=== PATIENT | female | born 1990 | race Caucasian/White ===

== ENCOUNTER 2017-04-13 20:26 | Inpatient (IN) | payer MEDICAID ==
[~2017-04-13] VITALS: Ht 170.2 cm; Wt 118.4 kg
[2017-04-13] MEDS: NACL 0.9% 1,000 ML IV SCH (01:40)
[~2017-04-13 20:26] MED LIST: MOTRIN600 MG PO
[2017-04-13 20:31] VITALS: BP 153/87
--- NOTE | 2017-04-13 21:52 | NUR ---
TO ER BED 4
--- NOTE | 2017-04-13 21:59 | NUR ---
26 Y/O FEMALE TO ER W/C/O VAGINAL BLEEDING X 12 DAYS, HEADACHE, NAUSEA AND VOMITING FOR 4 DAYS. PER PT LAST MENSTRIAL CYCLE WAS 7 MONTHS AGO. NO MED HX. CHRISTINA MARTIN MADE AWARE.
--- NOTE | 2017-04-13 22:04 | NUR ---
CHRISTINA MD EVALUATING PT AT THIS TIME.
[2017-04-13] MEDS ORDERED: KETOROLAC 30 MG/ML VIAL IVP ONE (22:15)
--- NOTE | 2017-04-13 23:23 | NUR ---
Pelvic exam performed by DR. OWENS with ME at bedside for entire examination. Patient tolerated procedure WELL. Patient assisted to position of comfort after examination.
--- NOTE | 2017-04-13 23:23 | NUR ---
Pelvic exam performed by DR. OWENS with ME at bedside for entire examination. Patient tolerated procedure WELL. Patient assisted to position of comfort after examination.
--- NOTE | 2017-04-13 23:31 | NUR ---
PT IN BED, VSS, NO OTHER S/S OF DISTRESS NOTED AT THE MOMENT.
[2017-04-13] MEDS ORDERED: DOCUSATE SODIUM 100 MG GELCAP PO PRN (23:45)
[2017-04-13] MEDS ORDERED: ACETAMINOPHEN 325 MG TAB PO PRN (23:45)
[2017-04-13] MEDS ORDERED: MORPHINE SULFATE 2 MG/ML SYR IVP PRN (23:45)
[2017-04-13] MEDS ORDERED: ONDANSETRON 4 MG/2 ML VIAL IM/IVP PRN (23:45)
[2017-04-14] VITALS (7 sets, daily range): BP systolic 100–123; BP diastolic 49–69
--- NOTE | 2017-04-14 00:09 | NUR ---
Patient will be admitted to care of DR HOWELL. Admited to TELEMETRY. Will go to room 105B. Belongings list completed. Report to BIN FRANKEL.
--- NOTE | 2017-04-14 00:16 | NUR ---
PT TRASFERRED TO FLOOR VIA GURBARBARA, ACCOMPANIED BY RN AND EMT.
--- NOTE | 2017-04-14 00:20 | NUR ---
PATIENT IS CURRENTLY AWAKE ALERT ORIENTED RESTING IN BED, DENIES PAIN UPON ADMISSION MINIMAL AMOUNT OF VAGINAL BLEEDING NOTED TO HER PERIPAD AT THIS TIME. SKIN ASSESSMENT DONE AND PATIENT SKIN IS CURRENTLY INTACT. PLAN OF CARE DISCUSSED WITH THE PATIENT. PATIENT IS AWARE THAT SHE HAS AN ORDER TO RECEIVE 2 UNITS OF BLOOD AND PATIENT AGREES TO SIGN THE CONSENT FOR BLOOD TRANSFUSION PATIENT VERBALIZES UNDERSTANDING.HELPER ANIMAL LABORATORY ANSELMO INFORMED THAT I NEED SCD'S FOR THE PATIENT.
--- NOTE | 2017-04-14 02:00 | NUR ---
I WAS NOTIFIED BY LAWRENCE CHIU HR UP TO 150 PATIENT ASSISTED TO THE BATHROOM PATIENT IS CURRENTLY ASYMPTOMATIC AND HAS NO COMPLAINS OF CHEST PAIN OR SOB AT THIS TIME.WILL CONTINUE TO MONITOR.
--- NOTE | 2017-04-14 02:29 | NUR ---
PATIENT IS RESTING IN BED PATIENT WANTS TO VOID AND I OFFERED THE BEDPAN BECAUSE SHE IS FEELING DIZZY AND SLIGHT SOB PATIENT REFUSED TO USE THE BEDPAN PATIENT HAS BEEN ALREADY PLACED ON FALL AND SAFETY PRECAUTIONS. PATIENT INSISTS TO WALK AND USE THE BATHROOM I INSTRUCTED THE PATIENT TO GET UP VERY SLOWLY TO SIT FOR FEW MINUTES THEN STAND AND IF SHE FEELS DIZZY SHE WILL SIT BACK DOWN AND WE MAY HAVE TO USE THE BEDPAN PATIENT AGREES. PATIENT INSISTS SHE IS FINE AND WANTS TO WALK SO SHE SAT AND THEN STOOD UP AND FEELS OK DENIES DIZZINESS SO I ASSISTED THE PATIENT TO THE BATHROOM AND I WAITED FOR THE PATIENT.CONTINUES TO HAVE MINIMAL BLEEDING TO PERIPAD.PATIENT WAS THEN ASSISTED BACK TO BED AND PLACED ON OXYGEN AT 2 LITERS VIA NC ORDERED BY MD GARCIA/
--- NOTE | 2017-04-14 02:38 | NUR ---
DORCAS FROM THE BLOOD BANK CALLED AND SAID THE BLOOD IS READY.
--- NOTE | 2017-04-14 03:03 | NUR ---
FIRST UNIT OF BLOOD CURRENTLY INFUSING I EXPLAINED TO THE PATIENT SOME OF THE SIDE EFFECTS TO REPORT AND I ALSO EXPLAINED TO THE PATIENT I WILL BE MONITORING HER AND CHECKING HER VITAL SIGNS PATIENT VERBALIZES UNDERSTANDING.WILL CONTINUE TO MONITOR PATIENT CURRENTLY TALKING ON THE PHONE WITH HER MOTHER.
--- NOTE | 2017-04-14 05:40 | NUR ---
PATIENT STABLE VITAL SIGNS STABLE FIRST UNIT OF BLOOD COMPLETE NO ADR NOTED DURING THE BLOOD TRANSFUSION PATIENT REMAINS STABLE.CALL LIGHT WITHIN REACH.
--- NOTE | 2017-04-14 06:27 | NUR ---
PATIENT STABLE CURRENTLY RECEIVING SECOND UNIT OF BLOOD TRANSFUSION PATIENT AWARE TO REPORT ANY SOB,ITCHING,AND RASH PATIENT MONITORED CLOSELY FOR ANY ADR VITALS SIGNS MONITORED.PATIENT DENIES PAIN AT THIS TIME.
--- NOTE | 2017-04-14 06:50 | NUR ---
Patient's Plan of Care was discussed and reviewed with BURRITO MAKER: JOSTIN STAPLES.
--- NOTE | 2017-04-14 06:55 | NUR ---
PATIENT IS CURRENTLY STABLE RESTING IN BED HAS OXYGEN AT 2L VIA NASAL CANNULA IN PLACE PATIENT DENIES PAIN.SECOND UNIT OF BLOOD ONGOING NO ADR NOTED.CALL LIGHT WITHIN REACH.
--- NOTE | 2017-04-14 07:34 | NUR ---
PATIENT STABLE REPORT ENDORSED TO RN BOLIVAR AT BEDSIDE PATIENT STABLE SECOND UNIT OF BLOOD ONGOING. ENDORSEDTO RN BOLIVAR THAT PATIENT LABS HAVEN'T BEEN DRAWN YET BECAUSE PATIENT IS GETTING BLOOD. INFORMED BIN LUTZ TO FOLLOW WITH THE LAB DEPARTMENT ONCE BLOOD TRANSFUSION IS COMPLETE.
--- NOTE | 2017-04-14 07:35 | NUR ---
RECEIVED ON BED AAOX4. NO SOB NOTED. NO C/O PAIN AT THIS TIME. IV TO RT AC PATENT AND INTACT WITH ON GOING BLOOD TRANSFUSION OF 2ND UNIT PRBC RUNNING AT 100 MLS/HR. WILL MONITOR FOR ANY BLOOD TRANSFUSION REACTIONS. CHEST CLEAR. ABDOMEN SOFT, BOWEL SOUNDS PRESENT. NO EDEMA NOTED. INSTRUCTED PT TO CALL FOR ASSISTANCE, CALL LIGHT WITHIN REACH, PT VERBALIZED UNDERSTANDING.
--- NOTE | 2017-04-14 08:45 | NUR ---
PATIENT HAS BEEN SCREENED AND CATEGORIZED HIGH NUTRITION RISK. PATIENT WILL BE SEEN WITHIN 1-2 DAYS OF ADMISSION. 04/14/17-04/15/[address]
--- NOTE | 2017-04-14 09:45 | NUR ---
2ND UNIT BLOOD TRANSFUSION COMPLETED. PT TOLERATED BT WELL. NO REACTIONS NOTED.
[2017-04-14] MEDS ORDERED: ACETAMINOPHEN EXTRA STRENGTH 500 MG TAB PO PRN (09:55)
--- NOTE | 2017-04-14 10:22 | NUR ---
SPOKE WITH MANUEL FROM LAB REGARDING PT'S BLOOD WORK FOR TODAY. MANUEL STATED SHE WILL DRAW PT AT 1200 NOON.
--- NOTE | 2017-04-14 11:01 | NUR ---
CM NOTE PER [facility] [phone], REVIEWS AND DISCHARGE NEEDS SHOULD ONLY BE SENT TO [facility] PER [facility] PH# [phone], THERE IS NO ASSIGNED METAL MINER YET INITIAL REVIEW FAXED TO [facility] [phone] Addendum: 04/14/17 at 1242 by Nataliya Puckett CM RECEIVED FAX FROM [facility] STATING THIS ADMSSION'S TRACKING# [id number] AND [facility] [place] PH [phone] [phone]
[2017-04-14] MEDS: LEVOFLOXACIN 250 MG/D5 PREMIX 50 ML IV SCH (11:35)
--- NOTE | 2017-04-14 13:10 | NUR ---
04/14/17 RD INITIAL ASSESSMENT COMPLETED PLEASE REFER TO NUTRITION ASSESSMENT UNDER CARE ACTIVITY FOR ESTIMATED NUTRITIONAL NEEDS. 1. CONTINUE REGULAR DIET 2. PROVIDE NUTRITION THERAPY EDUCATION NEEDED 3. RD TO FOLLOW-UP 7 DAYS, LOW RISK ARNAUD AGUILAR RD
[2017-04-14] MEDS ORDERED: FERRIC GLUCONATE 125 MG in NACL 0.9% 100 ML IV SCH (14:00)
[2017-04-14] MEDS: HYDROcodone/APAP 7.5/325 MG 1 TAB PO PRN ×2 (15:29→19:29)
--- NOTE | 2017-04-14 16:00 | NUR ---
PT AWAKE, TALKING TO HER MOM AT THE BEDSIDE. NO COMPLAINTS MADE.
--- NOTE | 2017-04-14 18:00 | NUR ---
PT HAD A TOTAL OF 6 PERINEAL PADS USED SINCE 7AM TO THIS HOUR, MODERATE VAGINAL BLEEDING NOTED.
--- NOTE | 2017-04-14 18:57 | NUR ---
PT RESTING. NO SOB NOTED. NO COMPLAINTS MADE. LAB CALLED FOR UNCOLLECTED URINE SAMPLE ORDERED IN ED. WILL ENDORSE TO NEXT SHIFT NURSE FOR CONTINUITY OF CARE. Addendum: 04/14/17 at 1859 by Taylor Samuel RN DISREGARD ABOVE NOTES. WRONG PT.
--- NOTE | 2017-04-14 18:57 | NUR ---
PT RESTING. NO SOB NOTED. NO COMPLAINTS MADE. WILL ENDORSE TO NEXT SHIFT NURSE FOR CONTINUITY OF CARE.
--- NOTE | 2017-04-14 19:30 | NUR ---
RECEIVED PT ON BED TALKING TO FAMILY MEMBERS AT BEDSIDE, COMPLAINING OF HEADACHE, VITAL SIGNS STABLE, MEDICATED PRN WITH NORCO, PT VERBALIZED STILL HAVING MODERATE VAGINAL BLEEDING, PADS PROVIDED, IVF INFUSING WELL, PLAN OF CARE DISCUSS, CALL LIGHT WITHIN REACH.
--- NOTE | 2017-04-14 21:20 | NUR ---
ROUNDED ON PT, AWAKE USING HER CELL PHONE, DENIES ANY PAIN, ALL NEEDS ATTENDED.
[2017-04-14] MEDS: NACL 0.9% 1,000 ML IV SCH (23:42)
[2017-04-15] VITALS: BP 123/64
--- NOTE | 2017-04-15 | NUR ---
PT SLEEPING, EASILY AROUSABLE, VITAL SIGNS STABLE, VERBALIZED USE 2 PADS SINCE BEGINNING OF SHIFT WITH MODERATE AND HEAVY BLEEDING NOTED, DENIES ANY PAIN, IVF INFUSING WELL, CONTINUE TO MONITOR CLOSELY.
[2017-04-15 04:00] VITALS: BP 121/71
--- NOTE | 2017-04-15 04:00 | NUR ---
SEEN COMING OUT OF THE BR, VERBALIZED CHANGED PAD WITH LIGHT VAGINAL BLEEDING AT THIS TIME, VITAL SIGNS STABLE, DENIES ANY PAIN, MONITORED CLOSELY.
--- NOTE | 2017-04-15 06:10 | NUR ---
DR ROC BEAVER PAGED FOR OB CONSULT, UPDATED ON PT'S CONDITION, WITH NEW ORDER FOR PROGESTERONE IM 150MG ONCE, WILL CARRY OUT.
--- NOTE | 2017-04-15 07:12 | NUR ---
PT SLEEPING, NO SIGNS OF DISTRESS, REPORT GIVEN TO RN CHRIS FOR CONTINUITY OF CARE.
--- NOTE | 2017-04-15 07:30 | NUR ---
RECEIVED ON BED AAOX4. NO SOB NOTED. NO C/O PAIN AT THIS TIME. IV TO RT AC PATENT AND INTACT. CHEST CLEAR. ABDOMEN SOFT, BOWEL SOUNDS PRESENT. NO EDEMA NOTED. WILL MONITOR FOR VAGINAL BLEEDING. INSTRUCTED PT TO CALL FOR ASSISTANCE, CALL LIGHT WITHIN REACH, PT VERBALIZED UNDERSTANDING.
[2017-04-15] MEDS: HYDROcodone/APAP 7.5/325 MG 1 TAB PO PRN (07:31)
[2017-04-15 08:00] VITALS: BP 118/61
--- NOTE | 2017-04-15 09:00 | NUR ---
PT STATED SHE ONLY CHANGED CHAPO PAD ONE TIME SINCE 7 AM THIS MORNING, WITH SLIGHT VAGINAL BLEEDING NOTED.
[2017-04-15] MEDS ORDERED: INFLUENZA VIRUS VACCINE QUAD 0.5 ML SYR IMVAC SCH (11:05)
[2017-04-15] MEDS: LEVOFLOXACIN 250 MG/D5 PREMIX 50 ML IV SCH (11:27)
[2017-04-15] MEDS ORDERED: NATURAL IRON65 MG PO (11:38)
[2017-04-15] MEDS ORDERED: MACROBID100 M1 PO (11:38)
--- NOTE | 2017-04-15 12:00 | NUR ---
PT TOLERATED LUNCH, CONSUMED 100% OF FOOD SERVED.
--- NOTE | 2017-04-15 12:24 | NUR ---
FAXED CONCURRENT REVIEW TO [facility] [phone] PHONE [place] [phone] Addendum: 04/15/17 at 1225 by Kia King CM TRACKING NUMBER [id number]
--- NOTE | 2017-04-15 13:30 | NUR ---
DISCHARGE INSTRUCTIONS GIVEN TO PT WHICH VERBALIZED FULL UNDERSTANDING OF THE TEACHINGS GIVEN AND THE NEED TO FOLLOW UP WITH PCP WITHIN 7 DAYS. PT MADE AWARE THAT HER PRESCRIPTIONS WERE SENT OUT TO HER PHARMACY OF CHOICE ON FILE AND WILL BE READY FOR HER SOON SHE IS D/C FROM THE HOSPITAL. PT CHANGED TOTAL OF 3 PADS WITH MODERATE VAGINAL BLEEDING NOTED SINCE 7 AM TODAY.
--- NOTE | 2017-04-15 13:35 | NUR ---
PT IS DISCHARGED FOR [facility] FLOOR IN STABLE CONDITION. AMBULATORY, NO COMPLAINTS MADE. PT IS D/C HOME WITH FAMILY.
--- NOTE | 2017-04-16 13:48 | NUR ---
CM NOTE DISCHARGE SUMMARY FAXED TO [facility] / FAX# [phone]
== END 2017-04-15 13:35 | disposition home or self-care (01) | DRG 532 ==
LOC: MED 20:26 → MTU 23:46
PROVIDERS: ADMIT Family Medicine Sports Medicine; ATTEND Family Medicine Sports Medicine
PROC: 30233N1 Transfusion of Nonautologous Red Blood Cells into Peripheral Vein, Percutaneous Approach (ICD-10-PCS; principal; 2017-04-14)
PROC: 3E0234Z Introduction of Serum, Toxoid and Vaccine into Muscle, Percutaneous Approach (ICD-10-PCS; 2017-04-15)
DX: E28.9 Ovarian dysfunction, unspecified (principal); N17.0 Acute kidney failure with tubular necrosis; E44.0 Moderate protein-calorie malnutrition; Z68.41 Body mass index [BMI] 40.0-44.9, adult; E66.01 Morbid (severe) obesity due to excess calories; R65.10 Systemic inflammatory response syndrome (SIRS) of non-infectious origin without acute organ dysfunction; N93.8 Other specified abnormal uterine and vaginal bleeding; R80.9 Proteinuria, unspecified; D72.829 Elevated white blood cell count, unspecified; N39.0 Urinary tract infection, site not specified; D50.0 Iron deficiency anemia secondary to blood loss (chronic); Z23 Encounter for immunization

== ENCOUNTER 2017-07-24 16:57 | Emergency (ER) | payer MEDICAID ==
[~2017-07-24] VITALS: Ht 170.2 cm; Wt 119.7 kg
[~2017-07-24 16:57] MED LIST changes: +FERR-252 PO; +IBUP-2213 PO; -MOTRIN600 MG PO; +NITR100C7 PO
[2017-07-24 17:04] VITALS: BP 131/81
[2017-07-24] MEDS ORDERED: ONDANSETRON 4 MG ODT PO ONE (17:25)
[2017-07-24] MEDS ORDERED: NACL 0.9% 2,000 ML IV ONE (17:30)
[2017-07-24] MEDS ORDERED: MORPHINE SULFATE 4 MG/ML SYR IVP ONE ×2 (17:40→18:35)
[2017-07-24 18:31] LABS: BASOPHILS # (AUTO) 0.2 K/uL (0.00-0.22); BASOPHILS % (AUTO) 1.2 % (0.0-2.0); EOSINOPHILS # (AUTO) 0.1 K/uL (0-0.4); EOSINOPHILS % (AUTO) 0.3 % (0.0-4.0); HEMATOCRIT 46.9 % (36-48); HEMOGLOBIN 14.6 g/dL (12.0-16.0); LYMPHOCYTES # (AUTO) 1.3 K/uL (2.5-16.5); LYMPHOCYTES % (AUTO) 7.8 % (20.5-51.1); MEAN CORPUSCULAR HEMOGLOBIN 23 pg (27-31); MEAN CORPUSCULAR HGB CONC 31 g/dL (33-37); MEAN CORPUSCULAR VOLUME 73 fL (80-94); MONOCYTES # (AUTO) 0.5 K/uL (0.8-1.0); MONOCYTES % (AUTO) 3.2 % (1.7-9.3); NEUTROPHILS # (AUTO) 14.6 K/uL (1.8-7.7); NEUTROPHILS % (AUTO) 87.5 % (42.2-75.2); PLATELET COUNT (AUTO) 453 K/uL (140-450); RED BLOOD CELL COUNT(AUTO) 6.46 MIL/uL (4.20-5.40); RED CELL DISTRIBUTION WIDTH 16.1 % (11.6-13.7); WHITE BLOOD COUNT (AUTO) 16.8 K/uL (4.8-10.8)
[2017-07-24 18:53] LABS: ANION GAP 16.7 (8-16); CARBON DIOXIDE 25.7 mmol/L (21-32); CREATININE 1.1 mg/dL (0.6-1.3); POTASSIUM 3.4 mmol/L (3.5-5.1)
[2017-07-24 18:54] LABS: ALBUMIN 3.8 g/dL (3.4-5.0); TOTAL BILIRUBIN 1.7 mg/dL (0.0-1.0)
[2017-07-24] MEDS ORDERED: MORPHINE SULFATE 2 MG/ML SYR ONE (19:16)
[2017-07-24] MEDS ORDERED: NACL 0.9% 1,000 ML IV ONE ×2 (19:25→19:55)
[2017-07-24] MEDS ORDERED: VANCOMYCIN 1,000 MG in DEXTROSE 5% 250 ML IV ONE (19:25)
[2017-07-24] MEDS ORDERED: PIPERACILLIN/TAZOBACTAM 3.375 GM in DEXTROSE 5% 50 ML IV ONE (19:25)
[2017-07-24] MEDS ORDERED: HYDROmorphone PFS 2 MG/ML SYR IVP ONE ×3 (19:55→22:55)
[2017-07-24] MEDS ORDERED: ONDANSETRON 4 MG/2 ML VIAL IVP ONE (19:55)
[2017-07-24] MEDS ORDERED: PIPERACILLIN/TAZOBACTAM 3.375 GM VIAL IV ONE (20:11)
[2017-07-24] MEDS ORDERED: VANCOMYCIN 1,000 MG VIAL ONE (20:42)
[2017-07-24 21:19] LABS: APPEARANCE,URINE SL CLOUDY (CLEAR); BILIRUBIN,URINE 2+ (NEGATIVE); BLOOD, URINE 3+ (NEGATIVE); COLOR,URINE YELLOW (YELLOW); LEUKOCYTE ESTERASE ,URINE NEGATIVE (NEGATIVE); NITRITE, URINE NEGATIVE (NEGATIVE); UGLUCOSE NEGATIVE (NEGATIVE)
[2017-07-24 21:42] LABS: RBC,URINE 11-20 (MOD) /HPF (0-5); WBC,URINE 0-5 (RARE) /HPF (0-5)
[2017-07-25] MEDS ORDERED: HYDROmorphone PFS 2 MG/ML SYR IVP ONE ×2 (00:20→02:05)
[2017-07-25] MEDS ORDERED: ENALAPRILAT 2.5 MG/2 ML VIAL IVP ONE (02:10)
[2017-07-25 02:38] VITALS: BP 168/72
== END 2017-07-25 02:35 | disposition short-term general hospital (02) ==
LOC: MED 16:57
DX: K81.0 Acute cholecystitis (principal); K85.90 Acute pancreatitis without necrosis or infection, unspecified; Z79.899 Other long term (current) drug therapy; Z90.89 Acquired absence of other organs
CPT/HCPCS: 36415; 74177; 76705; 80053; 81001; 81025; 83690; 85025; 96361; 96374; 96375; 96376; 99285; J1170; J2270; J2405; J2543; J3370; J3490; J7030; J7060; Q0092; Q9967; S0119

== ENCOUNTER 2017-08-22 22:30 | Inpatient (IN) | payer MEDICAID ==
[~2017-08-22] VITALS: Ht 170.2 cm; Wt 108.9 kg
[2017-08-22 22:36] VITALS: BP 138/112
[2017-08-22 23:34] LABS: HEMOGLOBIN 11.4 g/dL (12.0-16.0); MEAN CORPUSCULAR HEMOGLOBIN 23 pg (27-31); MEAN CORPUSCULAR HGB CONC 32 g/dL (33-37); MEAN CORPUSCULAR VOLUME 73 fL (80-94); PLATELET COUNT (AUTO) 487 K/uL (140-450); RED BLOOD CELL COUNT(AUTO) 4.96 MIL/uL (4.20-5.40); RED CELL DISTRIBUTION WIDTH 16.4 % (11.6-13.7); WHITE BLOOD COUNT (AUTO) 12.2 K/uL (4.8-10.8)
--- NOTE | 2017-08-22 23:38 | NUR ---
PT. BIB VIA W/C TO ER BED 12
[2017-08-22 23:49] LABS: LYMPHOCYTES % (MANUAL) 5 % (20-46)
[2017-08-22 23:50] LABS: ANION GAP 19.2 (8-16); CARBON DIOXIDE 22.5 mmol/L (21-32); CREATININE 0.7 mg/dL (0.6-1.3); EOSINOPHILS % (MANUAL) 2 % (0-4); MONOCYTES % (MANUAL) 5 % (5-12); POTASSIUM 3.7 mmol/L (3.5-5.1)
[2017-08-22] MEDS ORDERED: NACL 0.9% 1,000 ML IV ONE (23:50)
[2017-08-22] MEDS ORDERED: MORPHINE SULFATE 4 MG/ML SYR IVP ONE (23:50)
[2017-08-22] MEDS ORDERED: ONDANSETRON 4 MG/2 ML VIAL IVP ONE (23:50)
--- NOTE | 2017-08-22 23:50 | NUR ---
PATIENT PRESENTS TO ED WITH C/O ABDOMINAL PAIN WITH N/V X 3 HRS. TOOK NORCO AT 1999, PAIN NOT RELIEVED. S/P GALL BLADDER REMOVAL 3 WKS AGO. AAOX4, LUNGS CLEAR BL; HR EVEN AND REGULAR; PT DENIES ANY FEVER, CP, SOB, OR COUGH AT THIS TIME; PATIENT STATES PAIN OF 10/10 AT THIS TIME; VSS; SKIN IS PINK/WARM/DRY; PATIENT POSITIONED FOR COMFORT; HOB ELEVATED; BEDRAILS UP X2; BED DOWN. ER MD MADE AWARE OF PT STATUS.
[2017-08-22 23:57] LABS: ALBUMIN 3.8 g/dL (3.4-5.0); TOTAL BILIRUBIN 0.5 mg/dL (0.0-1.0)
--- NOTE | 2017-08-23 01:03 | NUR ---
PT LAYING IN BED RESTING, WILL CONTINUE TO MONITOR.
--- NOTE | 2017-08-23 01:19 | NUR ---
ER MD AT BEDSIDE EVALUATING PT
[2017-08-23] MEDS ORDERED: MORPHINE SULFATE 4 MG/ML SYR IVP ONE (01:30)
[2017-08-23] MEDS ORDERED: ACETAMINOPHEN 325 MG TAB PO PRN (01:50)
[2017-08-23] MEDS ORDERED: ONDANSETRON 4 MG/2 ML VIAL IVP PRN (01:50)
[2017-08-23 02:20] VITALS: BP 125/69
--- NOTE | 2017-08-23 02:20 | NUR ---
RECEIVED PT FROM ER VIA [facility] ST SPEAKER AAOX4 AMBULATORY HL ON RT HAND PATENT ON TELEMETRY SR NOT PAIN AT THIS TIME PAIN MEDIC WAS GIVEN IN ER, ON ABD 4 SMALL SCARS S/P LAP VISHAL 2 WEEKS AGO IN [place] , NARES MRSA SCREEN TAKEN AND SENT TO LAB, PT IS ORIENTED TO THE FLOOR CALL LIGHT WITHIN REACH.
--- NOTE | 2017-08-23 02:20 | NUR ---
PT ADMITTED TO ROOM 106B VIA GURNEY, REPORT GIVEN TO BIN LINDSEY AT BEDSIDE. VSS, PAIN LEVEL 5/10
[2017-08-23 02:32] LABS: APPEARANCE,URINE HAZY (CLEAR); BILIRUBIN,URINE NEGATIVE (NEGATIVE); BLOOD, URINE TRACE-L (NEGATIVE); COLOR,URINE YELLOW (YELLOW); LEUKOCYTE ESTERASE ,URINE NEGATIVE (NEGATIVE); NITRITE, URINE NEGATIVE (NEGATIVE); UGLUCOSE NEGATIVE (NEGATIVE)
[2017-08-23] MEDS: NACL 0.9% 1,000 ML IV SCH ×4 (02:42→19:07)
[2017-08-23 02:44] LABS: PROTHROMBIN TIME 11.1 secs (10.8-13.4)
[2017-08-23 02:48] LABS: BARBITURATE, URINE NEGATIVE ng/ml (NEG <=200); BENZODIAZEPINE, URINE NEGATIVE ng/mL (NEG <=200); CANNABINOID, URINE NEGATIVE ng/mL (NEG <=50); COCAINE, URINE NEGATIVE ng/mL (NEG <=300); OPIATE, URINE NEGATIVE ng/mL (NEG <=2000); PHENCYCLIDINE SCREEN,URINE NEGATIVE ng/mL (NEG <=25)
[2017-08-23 02:54] LABS: MAGNESIUM 1.7 mg/dL (1.8-2.4)
[2017-08-23 02:55] LABS: FREE T4 (FREE THYROXINE) 1.27 ng/dL (0.76-1.46); PHOSPHORUS 3.7 mg/dL (2.5-4.9); THYROID STIMULATING HORMONE 0.97 uIU/mL (0.34-3.74)
[2017-08-23 02:58] LABS: RBC,URINE 0-5 (RARE) /HPF (0-5)
--- NOTE | 2017-08-23 03:00 | NUR ---
THE RESIDENT DR ANTONY IS HERE AND SEE THE PT
[2017-08-23] MEDS: HYDROmorphone PFS 2 MG/ML SYR IVP PRN ×2 (03:17→10:20)
[2017-08-23 04:00] VITALS: BP 111/62
--- NOTE | 2017-08-23 05:46 | NUR ---
SPONGE BATH GIVEN LINEN CHANGED ON TELEMETRY SR NOT DISTRESS NOTED IV ON RT HAND INFUSING WELL
[2017-08-23 05:50] LABS: CHOL/HDL RATIO 3.7 (1-4.5)
[2017-08-23] MEDS: HYDROcodone/APAP 7.5/325 MG 1 TAB PO PRN (06:22)
--- NOTE | 2017-08-23 06:22 | NUR ---
PAIN MEDIC GIVEN ORDER WILL BE MONITORING
--- NOTE | 2017-08-23 07:21 | NUR ---
ASSUMED CONTINUITY OF CARE. NO SIGNS AND SYMPTOMS OF ACUTE DISTRESS NOTICED. INITIAL ASSESSMENT DONE. KEEP COMFORTABLE ON BED. EXPLAINED DIAGNOSIS, PLAN OF CARE, PAIN MANAGEMENT TEACHING, USE OF CALL LIGHT/BED/TV/BATHROOM. VERBALIZED UNDERSTANDING. CALL LIGHT WITHIN REACH.
--- NOTE | 2017-08-23 07:26 | NUR ---
PT IS ENDORSED TO FREDERICK VARGAS FOR CONTINUITY OF CARE
--- NOTE | 2017-08-23 07:30 | NUR ---
Patient's Plan of Care was discussed and reviewed with GLOVE BRUSHER: FREDERICK.
[2017-08-23 08:00] VITALS: BP 120/71
--- NOTE | 2017-08-23 09:06 | NUR ---
PATIENT HAS BEEN SCREENED AND CATEGORIZED MODERATE NUTRITION RISK. PATIENT WILL BE SEEN WITHIN 3-5 DAYS OF ADMISSION. 08/25/17-08/27/[address]
[2017-08-23] MEDS: DOCUSATE SODIUM 100 MG GELCAP PO SCH ×2 (09:15→20:51)
--- NOTE | 2017-08-23 11:49 | NUR ---
Social Service Note: I met with patient at bedside. I introduced myself to patient and explained to her my role as a medical attendant. She verbalized understanding. I attempted to obtain information from patient for assessment. However, she reported she was in pain and requested I return at a later time. She stated her nurse had explained to her that her medication was given as order by .
[2017-08-23 12:00] VITALS: BP 125/75
--- NOTE | 2017-08-23 12:15 | NUR ---
DR. DOMINGUEZ CAME, REVIEWED PT. CHART, AND SEEN PT..
[2017-08-23] MEDS: SENNA 8.6 MG TAB PO SCH ×2 (13:07→17:08)
--- NOTE | 2017-08-23 15:14 | NUR ---
Social Service Note: Per copyholder can start working on transfer to higher level of care on Friday08/25/17, patient's nurse Dutch made aware.
[2017-08-23 16:00] VITALS: BP 124/76
[2017-08-23] MEDS: AMYLASE/LIPASE/PROTEASE 1 CAPDR PO SCH (17:08)
--- NOTE | 2017-08-23 19:05 | NUR ---
BEDSIDE REPORT GIVEN TO JOSE NAVARRO -BIN. IVF INFUSING WELL. IN STABLE CONDITION.
--- NOTE | 2017-08-23 19:06 | NUR ---
RECEIVED REPORT FROM DAY SHIFT NURSE. AAOX4. NO C/O PAIN. IV TO RIGHT HAND #20G, NS AT 125 ML/HR. DISCUSSED PLAN OF CARE, PT VERBALIZED UNDERSTANDING. CALL LIGHT WITHIN REACH. WILL CONTINUE TO MONITOR.
[2017-08-23 20:00] VITALS: BP 122/83
--- NOTE | 2017-08-23 21:30 | NUR ---
PT IN BED, WATCHING TV. NO C/O PAIN OR DISCOMFORT. ALL NEEDS MET AT THIS TIME. CALL LIGHT WITHIN REACH.
[2017-08-24] VITALS: BP 134/81
--- NOTE | 2017-08-24 00:05 | NUR ---
PT SLEEPING BUT EASILY WAKES UP. NO S/S OF DISTRESS. CALL LIGHT WITHIN REACH.
--- NOTE | 2017-08-24 02:45 | NUR ---
PT SLEEPING. AROUSES EASILY. RESPIRATIONS REGULAR, EVEN AND UNLABORED. NO S/S OF PAIN. PERSONAL ITEMS AND CALL LIGHT WITHIN REACH.
[2017-08-24 04:00] VITALS: BP 128/88
--- NOTE | 2017-08-24 04:44 | NUR ---
PT C/O ABDOMINAL PAIN BUT REFUSED PAIN MEDS. PT STATED THAT PAIN IS TOLERATED.
--- NOTE | 2017-08-24 05:37 | NUR ---
PT STATED THAT SHE'S PASSING GAS AND SHE FEELS BETTER. ALL NEEDS MET AT THIS TIME. CALL LIGHT WITHIN REACH.
[2017-08-24 06:26] LABS: BASOPHILS # (AUTO) 0.1 K/uL (0.00-0.22); BASOPHILS % (AUTO) 1.9 % (0.0-2.0); EOSINOPHILS # (AUTO) 0.1 K/uL (0-0.4); EOSINOPHILS % (AUTO) 1.6 % (0.0-4.0); HEMATOCRIT 33.4 % (36-48); HEMOGLOBIN 10.2 g/dL (12.0-16.0); MEAN CORPUSCULAR HEMOGLOBIN 23 pg (27-31); MEAN CORPUSCULAR HGB CONC 31 g/dL (33-37); MEAN CORPUSCULAR VOLUME 74 fL (80-94); MONOCYTES # (AUTO) 0.5 K/uL (0.8-1.0); MONOCYTES % (AUTO) 6.7 % (1.7-9.3); NEUTROPHILS # (AUTO) 5.8 K/uL (1.8-7.7); NEUTROPHILS % (AUTO) 75.8 % (42.2-75.2); PLATELET COUNT (AUTO) 373 K/uL (140-450); RED BLOOD CELL COUNT(AUTO) 4.49 MIL/uL (4.20-5.40); RED CELL DISTRIBUTION WIDTH 15.4 % (11.6-13.7); WHITE BLOOD COUNT (AUTO) 7.5 K/uL (4.8-10.8)
[2017-08-24 06:31] LABS: ANION GAP 14.4 (8-16); CARBON DIOXIDE 25.9 mmol/L (21-32); CREATININE 0.6 mg/dL (0.6-1.3); POTASSIUM 3.3 mmol/L (3.5-5.1)
[2017-08-24 06:36] LABS: MAGNESIUM 1.5 mg/dL (1.8-2.4)
--- NOTE | 2017-08-24 07:20 | NUR ---
ENDORSED PT TO DAY SHIFT NURSE. PT IN STABLE CONDITION.
--- NOTE | 2017-08-24 07:25 | NUR ---
RECEIVED REPORT FROM SURVEILLANCE CAMERA TECHNICIAN NURSE. PT RESTING IN BED. PT STATED SHE WAS ABLE TO HAVE A BM THIS MORNING. IV RIGHT HAND #20G NS @ 125ML/HR. CLEAR LIQUID DIET. AOX4. ON ROOM AIR. PT STABLE AT THIS TIME. CALL LIGHT WITHIN REACH. BED IN LOWEST POSITION. WILL CONTINUE TO MONITOR.
[2017-08-24 08:00] VITALS: BP 146/105
[2017-08-24] MEDS ORDERED: MAGNESIUM OXIDE 400 MG TAB PO SCH (08:00)
[2017-08-24] MEDS ORDERED: POTASSIUM CHLORIDE 10 MEQ TABER PO SCH (08:00)
[2017-08-24] MEDS: AMYLASE/LIPASE/PROTEASE 1 CAPDR PO SCH ×3 (08:34→17:27)
[2017-08-24] MEDS: DOCUSATE SODIUM 100 MG GELCAP PO SCH ×2 (08:34→20:54)
[2017-08-24] MEDS: SENNA 8.6 MG TAB PO SCH ×3 (08:34→20:54)
--- NOTE | 2017-08-24 08:35 | NUR ---
PT TOLERATED AM MEDICATIONS WELL. ON CLEAR LIQUID DIET. HAS APPETITE FOR BREAKFAST. PT STABLE AT THIS TIME. NO S/S OF RESPIRATORY DISTRESS OR DISCOMFORT. CALL LIGHT WITHIN REACH. BED IN LOWEST POSITION. WILL CONTINUE TO MONITOR.
[2017-08-24] MEDS: NACL 0.9% 1,000 ML IV SCH ×2 (10:18→12:19)
--- NOTE | 2017-08-24 10:30 | NUR ---
PT RESTING IN BED. SUPINE. PT STATED THAT SHE CAN ONLY EAT A LITTLE AT A TIME BECAUSE SHE FEELS FULL QUICKLY. PT PLANS ON CONTINUING HER BREAKFAST TO AT LEAST FINISH HER JELLO. PT ALSO MENTIONED THAT SHE HAS BEEN URINATING A LOT DUE TO THE FLUIDS. ALSO HAS FELT RELIEF FROM 3 BOWEL MOVEMENTS TODAY BECAUSE OF THE SENEKOT AND COLACE MEDICATION. CALL LIGHT WITHIN REACH. BED IN LOWEST POSITION. NO S/S OF RESPIRATORY DISTRESS OR DISCOMFORT. WILL CONTINUE TO MONITOR.
[2017-08-24 12:00] VITALS: BP 126/77
--- NOTE | 2017-08-24 12:51 | NUR ---
ADMINISTERED PANCREASE RX. PT TOLERATED WELL. PT REFUSED SENOKOT DUE TO LOOSE STOOLS. PT FAMILY AT BEDSIDE. PT STATED "I'M HUNGRY AND WANT SOMETHING TO BITE INTO LIKE A CRACKER AND EAT FOOD." REINFORCED TEACHING THAT SHE IS CURRENTLY ON A CLEAR LIQUID DIET. PT STABLE AT THIS TIME. NO S/S OF RESPIRATORY DISTRESS OR DISCOMFORT. BED IN LOWEST POSITION. CALL LIGHT WITHIN REACH. WILL CONTINUE TO MONITOR.
--- NOTE | 2017-08-24 15:28 | NUR ---
PT SLEEPING AT THIS TIME. BED IN LOWEST POSITION. CALL LIGHT WITHIN REACH. NO S/S OF RESPIRATORY DISTRESS AND DISCOMFORT. WILL CONTINUE TO MONITOR.
[2017-08-24 16:00] VITALS: BP 133/84
--- NOTE | 2017-08-24 17:35 | NUR ---
PT RESTING IN BED. MEDICATIONS GIVEN AND TOLERATED WELL. FULL LIQUID DIET TRAY ARRIVED. PT ASKING TO BE PUT ON A REGULAR DIET. NEW ORDERS WERE GIVEN THAT PT IS ALLOWED TO HAVE CRACKERS. PT STABLE AT THIS TIME. NO S/S OF RESPIRATORY DISTRESS OR DISCOMFORT. CALL LIGHT WITHIN REACH. WILL CONTINUE TO MONITOR.
--- NOTE | 2017-08-24 19:20 | NUR ---
PT ENDORSED TO CISCO ADMINISTRATOR NURSE. PT STABLE AT THIS TIME. NO S/S OF RESPIRATORY DISTRESS OR DISCOMFORT. CALL LIGHT WITHIN REACH. BED IN LOWEST POSITION.
--- NOTE | 2017-08-24 19:36 | NUR ---
RECEIVED REPORT FROM DAY SHIFT RN, PATIENT RESTING IN BED, AWAKE ALERT ORIENTED X4, NO S/S OF DISTRESS NOTED, RESPIRATION EVEN AND UNLABORED, IVF INFUSING AT 70ML/HR, PLAN OF CARE DISCUSSED, PATIENT VERBALIZED UNDERSTANDING, CALL LIGHT WITHIN REACH, SAFETY MEASURE ENSURED, WILL CONTINUE TO MONITOR.
[2017-08-24 20:00] VITALS: BP 122/75
--- NOTE | 2017-08-24 21:18 | NUR ---
PATIENT STATED," THE IV HURTS ME A LOT." UPON ASSESSMENT, NOTED IV INFILTRATED, STARTED NEW IV 22G LT FOREARM, PATIENT TOLERATED WELL, OLD IV TAKEN OUT, TIP INTACT, NO ACTIVE BLEEDING NOTED AT THE IV SITE. CALL LIGHT WITHIN REACH, SAFETY MEASURE ENSURED, WILL CONTINUE TO MONITOR.
--- NOTE | 2017-08-24 21:55 | NUR ---
PATIENT REFUSED COLACE AND SENNA, STATED," I HAD SEVERAL BOWEL MOVEMENT ALREADY, I DON'T WANT TO TAKE THOSE ANYMORE." EDUCATION PROVIDED, PATIENT VERBALIZED UNDERSTANDING, BUT STILL REFUSED.
--- NOTE | 2017-08-24 23:20 | NUR ---
PATIENT IS WATCHING TV, NO S/S OF DISTRESS NOTED, RESPIRATION EVEN AND UNLABORED, CALL LIGHT WITHIN REACH, SAFETY MEASURE ENSURED, WILL CONTINUE TO MONITOR.
[2017-08-25] VITALS: BP 130/84
--- NOTE | 2017-08-25 00:49 | NUR ---
VITAL SIGNS STABLE, NO S/S OF DISTRESS NOTED, RESPIRATION EVEN AND UNLABORED, CALL LIGHT WITHIN REACH, SAFETY MEASURE ENSURED, WILL CONTINUE TO MONITOR.
--- NOTE | 2017-08-25 02:21 | NUR ---
NO CHANGE IN CONDITION, PATIENT IS SLEEPING, NO S/S OF DISTRESS NOTED, RESPIRATION EVEN AND UNLABORED, CALL LIGHT WITHIN REACH, SAFETY MEASURE ENSURED, WILL CONTINUE TO MONITOR.
[2017-08-25 03:48] VITALS: BP 134/78
--- NOTE | 2017-08-25 04:23 | NUR ---
VITAL SIGNS STABLE, NO S/S OF DISTRESS NOTED, RESPIRATION EVEN AND UNLABORED, CALL LIGHT WITHIN REACH, SAFETY MEASURE ENSURED, WILL CONTINUE TO MONITOR.
[2017-08-25 06:15] LABS: BASOPHILS # (AUTO) 0.1 K/uL (0.00-0.22); BASOPHILS % (AUTO) 1.3 % (0.0-2.0); EOSINOPHILS # (AUTO) 0.1 K/uL (0-0.4); EOSINOPHILS % (AUTO) 1.9 % (0.0-4.0); HEMATOCRIT 30.3 % (36-48); HEMOGLOBIN 9.7 g/dL (12.0-16.0); LYMPHOCYTES % (AUTO) 14.9 % (20.5-51.1); MEAN CORPUSCULAR HEMOGLOBIN 24 pg (27-31); MEAN CORPUSCULAR HGB CONC 32 g/dL (33-37); MEAN CORPUSCULAR VOLUME 74 fL (80-94); MONOCYTES # (AUTO) 0.5 K/uL (0.8-1.0); MONOCYTES % (AUTO) 7.4 % (1.7-9.3); NEUTROPHILS # (AUTO) 5.3 K/uL (1.8-7.7); NEUTROPHILS % (AUTO) 74.5 % (42.2-75.2); PLATELET COUNT (AUTO) 321 K/uL (140-450); RED CELL DISTRIBUTION WIDTH 16.3 % (11.6-13.7)
--- NOTE | 2017-08-25 06:37 | NUR ---
DILAUDID IS NOT ADMINISTERED, DILAUDID RETURNED TO THE BIN IN MED ROOM, RN JONATHAN FERNANDEZ WITNESS.
[2017-08-25] MEDS: HYDROcodone/APAP 7.5/325 MG 1 TAB PO PRN (06:39)
[2017-08-25 07:02] LABS: ANION GAP 12.4 (8-16); CARBON DIOXIDE 26.9 mmol/L (21-32); CREATININE 0.5 mg/dL (0.6-1.3); POTASSIUM 3.3 mmol/L (3.5-5.1)
[2017-08-25 07:06] LABS: MAGNESIUM 1.6 mg/dL (1.8-2.4); PHOSPHORUS 4.1 mg/dL (2.5-4.9)
--- NOTE | 2017-08-25 07:20 | NUR ---
ENDORSED PLAN OF CARE TO DAY SHIFT RN, PATIENT IS IN STABLE CONDITION, NO S/S OF DISTRESS.
--- NOTE | 2017-08-25 07:22 | NUR ---
RECEIVED PATIENT REPORT AT BEDSIDE FROM NIGHT NURSE. PATIENT IS AAOX4 AND SHOWS NO S/S OF ACUTE DISTRESS ON ROOM AIR, DENIES PAIN. ON TELE MONITOR. IV NOTED ON THE LEFT FOREARM WITH IVF'S INFUSING WELL, PATENT AND INTACT. NOTED 4 HEALED ABD INCISION FROM PREVIOUS SURGERY DONE 2 WEEKS AGO AT ANOTHER HOSPITAL, [facility] WITH NO S/S OF INFECTION. PATIENT WAS EXPLAINED POC FOR TODAY, HOSPITAL ENVIRONMENT AND USE OF CALL LIGHT FOR ASSISTANCE, PATIENT VERBALIZED UNDERSTANDING. ALL NEEDS MET AT THIS TIME, BED IN LOW POSITION WITH CALL LIGHT WITHIN REACH.
[2017-08-25] MEDS: DOCUSATE SODIUM 100 MG GELCAP PO SCH ×2 (07:55→20:40)
[2017-08-25 07:58] VITALS: BP 124/81
[2017-08-25] MEDS: AMYLASE/LIPASE/PROTEASE 1 CAPDR PO SCH ×3 (08:46→16:21)
--- NOTE | 2017-08-25 08:50 | NUR ---
ADMINISTERED SCHEDULED MEDICATIONS. PATIENT SWALLOWED WITH NO DIFFICULTY, ALL NEEDS MET AT THIS TIME. BED IN LOW POSITION WITH CALL LIGHT WITHIN REACH.
--- NOTE | 2017-08-25 10:17 | NUR ---
CM NOTE [facility]OK [facility] FOR [facility] (C: [phone]) MADE AWARE OF TRANSFER REQUEST TO HIGHER LEVEL OF CARE.
[2017-08-25] MEDS: NACL 0.9% 1,000 ML IV SCH ×2 (11:16→23:44)
--- NOTE | 2017-08-25 11:45 | NUR ---
ADMINISTERED SCHEDULED MEDICATIONS, IV MEDICATION INFUSING WELL. PATIENT SWALLOWED PO MEDS WITHOUT DIFFICULTY. ALL NEEDS MET AT THIS TIME.
[2017-08-25] MEDS ORDERED: MAG SULF 2000 MG/WATER PREMIX 100 ML IV SCH (12:00)
[2017-08-25 12:01] VITALS: BP 122/82
--- NOTE | 2017-08-25 12:34 | NUR ---
CM NOTE FAXED RECEIVED FROM [facility]; MADE AWARE THAT PATIENT IS OUT OF AREA AND TO CONTACT [facility]. SPOKE W/ EDGARD FROM [facility] (C: [phone], OPT. 2). MIKE IS CM FOR PATIENT BUT IS OUT FOR THE DAY; EZEQUIEL COVERING. SHE HAS EMAILED EZEQUIEL AND WILL CALL BACK HENOK.
--- NOTE | 2017-08-25 12:37 | NUR ---
CM NOTE INITIAL REVIEW FAXED TO [facility] / FAX# [phone], C: [phone], OPT. 2
--- NOTE | 2017-08-25 13:17 | NUR ---
HENOK NOTE PER KELLEY FROM [facility] HAS AUTHORIZED TRANSFER TO [facility]. CLINICAL INFORMATION FAXED TO [facility]. PROVIDED # TO KELLEY LAMAS CODE. Addendum: 08/25/17 at 1321 by Santy Sahu RN [facility] [place] TRANSPORT: #[id number]
[2017-08-25 15:56] VITALS: BP 119/82
[2017-08-25] MEDS ORDERED: POTASSIUM CHLORIDE 40 MEQ, LIDOCAINE 1% 25 MG in NACL 0.9% 250 ML IV SCH (16:00)
--- NOTE | 2017-08-25 16:29 | NUR ---
ADMINISTERED SCHEDULED MEDS. PATIENT SWALLOWED MEDS WITHOUT DIFFICULTY. PATIENT DENIES PAIN. IV MEDS INFUSING WELL AT THIS TIME.
--- NOTE | 2017-08-25 19:15 | NUR ---
GAVE PATIENT REPORT AT BEDSIDE, PATIENT ENDORSED IN STABLE CONDITION.
--- NOTE | 2017-08-25 19:16 | NUR ---
RECEIVED REPORT FROM DAY SHIFT NURSE. PT IS A/OX4, ON ROOM AIR. 22G IV TO LEFT FOREARM INFUSING NS@70ML/HR. PT AMBULATES WITH STEADY GAIT. PT SKIN IS INTACT. UPDATED BOARD. VITAL SIGNS WITHIN NORMAL LIMITS. PT IN STABLE CONDITION, NO SIGNS OF DISTRESS NOTED. BED IN LOWEST POSITION, CALL LIGHT WITHIN REACH. WILL CONTINUE TO MONITOR.
[2017-08-25] MEDS: SENNA 8.6 MG TAB PO SCH (20:39)
--- NOTE | 2017-08-25 20:40 | NUR ---
ADMINISTERED SCHEDULED MEDICATION, PT TOLERATED WELL. PT REFUSED COLACE BECAUSE SHE DOES NOT LIKE TO TAKE SENNA AND COLACE COMBINED. EXPLAINED RISKS AND BENEFITS OF MEDICATION, PT VERBALIZED UNDERSTANDING AND STILL OPTED TO ONLY TAKE SENNA.
[2017-08-26] VITALS: BP 128/82
--- NOTE | 2017-08-26 | NUR ---
VITAL SIGNS WITHIN NORMAL LIMITS. PT IN STABLE CONDITION, NO SIGNS OF DISTRESS NOTED. BED IN LOWEST POSITION, CALL LIGHT WITHIN REACH. WILL CONTINUE TO MONITOR.
--- NOTE | 2017-08-26 04:00 | NUR ---
PT IN STABLE CONDITION, NO SIGNS OF DISTRESS NOTED. BED IN LOWEST POSITION, CALL LIGHT WITHIN REACH. WILL CONTINUE TO MONITOR.
[2017-08-26 06:27] LABS: BASOPHILS # (AUTO) 0.1 K/uL (0.00-0.22); BASOPHILS % (AUTO) 1.2 % (0.0-2.0); EOSINOPHILS # (AUTO) 0.1 K/uL (0-0.4); EOSINOPHILS % (AUTO) 1.9 % (0.0-4.0); HEMATOCRIT 30.1 % (36-48); HEMOGLOBIN 9.5 g/dL (12.0-16.0); LYMPHOCYTES # (AUTO) 1.2 K/uL (2.5-16.5); LYMPHOCYTES % (AUTO) 16.6 % (20.5-51.1); MEAN CORPUSCULAR HEMOGLOBIN 23 pg (27-31); MEAN CORPUSCULAR HGB CONC 32 g/dL (33-37); MEAN CORPUSCULAR VOLUME 74 fL (80-94); MONOCYTES # (AUTO) 0.5 K/uL (0.8-1.0); MONOCYTES % (AUTO) 7.4 % (1.7-9.3); NEUTROPHILS # (AUTO) 5.1 K/uL (1.8-7.7); NEUTROPHILS % (AUTO) 72.9 % (42.2-75.2); PLATELET COUNT (AUTO) 299 K/uL (140-450); RED BLOOD CELL COUNT(AUTO) 4.04 MIL/uL (4.20-5.40); RED CELL DISTRIBUTION WIDTH 15.9 % (11.6-13.7)
--- NOTE | 2017-08-26 07:19 | NUR ---
ENDORSED PT IN STABLE CONDITION TO DAY SHIFT NURSE FOR CONTINUITY OF CARE.
[2017-08-26 07:20] LABS: FOLIC ACID 5.7 ng/mL (>3.0)
--- NOTE | 2017-08-26 07:20 | NUR ---
RECEIVED PATIENT REPORT AT BEDSIDE FROM NIGHT NURSE. PATIENT IS AAOX4 AND SHOWS NO S/S OF ACUTE DISTRESS ON ROOM AIR, DENIES PAIN. IV NOTED ON THE LEFT FOREARM WITH IVF'S INFUSING WELL, PATENT AND INTACT. NOTED 4 HEALED ABD INCISION FROM PREVIOUS SURGERY DONE 2 WEEKS AGO AT ANOTHER HOSPITAL, [facility] WITH NO S/S OF INFECTION. PATIENT WAS EXPLAINED POC FOR TODAY, HOSPITAL ENVIRONMENT AND USE OF CALL LIGHT FOR ASSISTANCE, PATIENT VERBALIZED UNDERSTANDING. ALL NEEDS MET AT THIS TIME, BED IN LOW POSITION WITH CALL LIGHT WITHIN REACH.
[2017-08-26 07:36] VITALS: BP 142/85
[2017-08-26 07:52] LABS: CARBON DIOXIDE 24.8 mmol/L (21-32); CREATININE 0.6 mg/dL (0.6-1.3); POTASSIUM 3.8 mmol/L (3.5-5.1)
[2017-08-26] MEDS: AMYLASE/LIPASE/PROTEASE 1 CAPDR PO SCH ×3 (08:23→17:13)
[2017-08-26] MEDS: DOCUSATE SODIUM 100 MG GELCAP PO SCH ×2 (08:24→21:00)
--- NOTE | 2017-08-26 08:25 | NUR ---
ADMINISTERED SCHEDULED MEDS. PATIENT SWALLOWED WITHOUT DIFFICULTY. ALL NEEDS MET AT THIS TIME. BED IN LOW POSITION. CALL LIGHT WITHIN REACH.
[2017-08-26 09:32] LABS: PHOSPHORUS 4.3 mg/dL (2.5-4.9)
--- NOTE | 2017-08-26 11:08 | NUR ---
FAXED CONCURRENT REVIEW TO [facility] [phone] PHONE KELLEY [phone] SPOKE WITH MIKE FROM [facility]. I TOLD HER THAT I SPOKE WITH KARLI AT [facility] AND THAT THEY NEED A KATIA BEFORE PROCEEDING WITH THE REQUEST FOR TRANSFER. SHE SAID SHE WOULD CALL ME BACK. SHE SAID TO FAX REVIEW TO [phone]. FAXED CONCURRENT REVIEW TO HER. PHONE FOR MIKE IS [phone]
--- NOTE | 2017-08-26 12:13 | NUR ---
ADMINISTERED SCHEDULED MEDS. PATIENT SWALLOWED WITHOUT DIFFICULTY. ALL NEEDS MET AT THIS TIME. BED IN LOW POSITION. CALL LIGHT WITHIN REACH.
--- NOTE | 2017-08-26 12:43 | NUR ---
PATIENT AMB WITH STEADY GAIT TO SHOWER.
[2017-08-26] MEDS: NACL 0.9% 1,000 ML IV SCH ×2 (13:11→23:47)
--- NOTE | 2017-08-26 13:48 | NUR ---
RECEIVED A CALL FROM MIKE FROM [facility], [phone]. SHE SAID THAT [facility] WILL DO A KATIA FOR THE PATIENT TO GO TO [facility]. SHE ASKED FOR THE PHONE NUMBER FOR [facility] AND I TOLD HER A SPOKE WITH KARLI [phone].
--- NOTE | 2017-08-26 14:08 | NUR ---
08/26/2017 RD INITIAL ASSESSMENT COMPLETED PLEASE REFER TO NUTRITION ASSESSMENT UNDER CARE ACTIVITY FOR ESTIMATED NUTRITIONAL NEEDS. CONTINUE FULL LIQUID DIET MEDICALLY APPROPRIATE. ADVANCE DIET PO INTAKE IS TOLERATED. RD TO FOLLOW-UP IN 2-3 DAYS PATIENT IS HIGH RISK. OCTAVIA TAY, RD
--- NOTE | 2017-08-26 14:45 | NUR ---
PATIENT IS LAYING IN BED AND SHOWS NO S/S OF ACUTE DISTRESS ON ROOM AIR. ALL NEEDS MET AT THIS TIME.
--- NOTE | 2017-08-26 14:56 | NUR ---
SPOKE WITH KARLI FROM [facility]. HE SAID HE SPOKE WITH MIKE FROM [facility] AND SHE WAS SUPPOSE TO SPEAK WITH [facility] ABOUT THE KATIA. HE WILL CALL ME BACK WHEN APPROVAL FOR TRANSFER IS DONE. Addendum: 08/26/17 at 1506 by Kia King SPOKE WITH MIKE FROM [facility]. SHE SPOKE WITH THE [facility] DEPT AT [facility] AND WAS TOLD THEY ALSO NEED AN KATIA FROM [facility]. VICTOR HUGO SAID SHE CONTACTED HER [facility] DEPT AT [facility] AND LEFT MESSAGE FOR KELLEY AT [facility].
[2017-08-26 15:37] VITALS: BP 121/83
--- NOTE | 2017-08-26 17:15 | NUR ---
ADMINISTERED SCHEDULED MEDICATIONS, PATIENT SWALLOWED WITHOUT DIFFICULTY. ALL NEEDS MET AT THIS TIME.
--- NOTE | 2017-08-26 19:20 | NUR ---
REPORT GIVEN TO NIGHT NURSE AT BEDSIDE, PATIENT ENDORSED IN STABLE CONDITION.
[2017-08-26] MEDS: SENNA 8.6 MG TAB PO SCH (21:04)
[2017-08-27] VITALS: BP 135/88
--- NOTE | 2017-08-27 | NUR ---
VITAL SIGNS WITHIN NORMAL LIMITS. PT IN STABLE CONDITION, NO SIGNS OF DISTRESS NOTED. BED IN LOWEST POSITION, CALL LIGHT WITHIN REACH. WILL CONTINUE TO MONITOR.
--- NOTE | 2017-08-27 02:00 | NUR ---
PT IN STABLE CONDITION, NO SIGNS OF DISTRESS NOTED. BED IN LOWEST POSITION, CALL LIGHT WITHIN REACH. WILL CONTINUE TO MONITOR.
--- NOTE | 2017-08-27 04:45 | NUR ---
JOANNE FROM [facility] CALLED TO ASK IF ANY CHANGES HAD HAPPENED IN PT STATUS BETWEEN YESTERDAY AND TODAY, ASKED IF SHE WAS STILL ON TELE MONITORING. INFORMED HIM SHE WAS NOW MEDS[facility] AND OTHER THAN THAT, NOTHING MAJOR HAS HAPPENED BETWEEN YESTERDAY AND TODAY. ASKED IF THEY HAD BED FOR PT ALREADY, JOANNE SAID HE HAD TO SPEAK WITH [employer] FIRST TO VERIFY SOMETHING ON INSURANCE AND KATIA. HE SAID HE WOULD CALL LATER TO SPEAK TO [employer] [facility] AND THAT EVERYTHING MIGHT BE SETTLED UNTIL LATER IN THE MORNING.
--- NOTE | 2017-08-27 07:27 | NUR ---
ENDORSED PT IN STABLE CONDITION TO DAY SHIFT NURSE FOR CONTINUITY OF CARE.
--- NOTE | 2017-08-27 07:30 | NUR ---
RECEIVED PATIENT REPORT AT BEDSIDE FROM NIGHT NURSE. PATIENT IS AAOX4 AND SHOWS NO S/S OF ACUTE DISTRESS ON ROOM AIR, DENIES PAIN. IV NOTED ON THE LEFT FOREARM WITH IVF'S INFUSING WELL, PATENT AND INTACT. NOTED 4 HEALED ABD INCISION FROM PREVIOUS SURGERY DONE 2 WEEKS AGO AT ANOTHER HOSPITAL, [facility] WITH NO S/S OF INFECTION. PATIENT WAS EXPLAINED POC FOR TODAY, HOSPITAL ENVIRONMENT AND USE OF CALL LIGHT FOR ASSISTANCE, PATIENT VERBALIZED UNDERSTANDING. ALL NEEDS MET AT THIS TIME, BED IN LOW POSITION WITH CALL LIGHT WITHIN REACH.
--- NOTE | 2017-08-27 07:59 | NUR ---
PATIENT REQUESTED TO LEAVE AMA, SUNNY STEWARD NOTIFIED AND STATED WILL LET THE DR'S KNOW. PATIENT WAS EDUCATED ON RISKS FOR LEAVING AMA, PATIENT INSISTED AND WOULD LIKE TO TALK WITH THE .
[2017-08-27] MEDS: AMYLASE/LIPASE/PROTEASE 1 CAPDR PO SCH (08:00)
--- NOTE | 2017-08-27 08:01 | NUR ---
PATIENT BEING SEEN BY DR JIMENEZ REGARDING AMA.
[2017-08-27 08:03] VITALS: BP 137/86
--- NOTE | 2017-08-27 08:17 | NUR ---
PATIENT SPOKE WITH DR JIMENEZ AND CONTINUED TO INSIST ON LEAVING AMA, PATIENT SIGNED AMA PAPERWORK AND VERBALIZED UNDERSTANDING OF RISKS FROM LEAVING HOSPITAL. IV WAS DISCONTINUED WITH CANNULA INTACT, WRISTBANDS REMOVED. PATIENT IS GETTING DRESSED, FAMILY AT BEDSIDE.
--- NOTE | 2017-08-27 08:23 | NUR ---
PATIENT LEFT UNIT WITH SISTER PRESENT AT SIDE, PATIENT AMB WITH STEADY GAIT OFF UNIT.
--- NOTE | 2017-08-27 09:46 | NUR ---
CALLED [facility] AND SPOKE WITH JOELLE. NO KATIA FROM [facility] OR [facility] YET. I CALLED [facility] AND SPOKE WITH MIKE, SHE WILL FOLLOW UP AND SHE WILL ALSO CALL KELLEY AT [facility]. I CALLED KELLEY AT [facility] AND LEFT A MESSAGE.
--- NOTE | 2017-08-27 13:54 | NUR ---
LATE ENTRY. EARLIER THIS AM IF CALLED [facility] AND SPOKE WITH KELLEY. INFORMED HER THAT PATIENT LEFT AMA. CALLED [facility] AND INFORMED THEM THAT PATIENT LEFT AMA. CALLED LM AND LEFT MESSAGE FOR MIKE THAT THIS PATIENT LEFT AMA. FAXED CONCURENT REVIEW TO [facility] [phone] PHONE KELLEY [phone] FAXED CONCURRENT REVIEW TO [facility] [phone] PHONE MIKE [phone]
== END 2017-08-27 08:23 | disposition left against medical advice (07) | DRG 282 ==
LOC: MED 22:30 → MTU 08-23 01:56
PROVIDERS: ADMIT Student in an Organized Health Care Education/Training Program; ATTEND Student in an Organized Health Care Education/Training Program
DX: K86.3 Pseudocyst of pancreas (principal); E83.42 Hypomagnesemia; E87.6 Hypokalemia; E66.9 Obesity, unspecified; D50.9 Iron deficiency anemia, unspecified; E11.9 Type 2 diabetes mellitus without complications; K86.89 Other specified diseases of pancreas; Z53.21 Procedure and treatment not carried out due to patient leaving prior to being seen by health care provider; Z68.37 Body mass index [BMI] 37.0-37.9, adult; Z90.49 Acquired absence of other specified parts of digestive tract
CPT/HCPCS: 36415; 71045; 71250; 80048; 80053; 80305; 81001; 82140; 82150; 82607; 82728; 82746; 83036; 83540; 83605; 83615; 83690; 83735; 83880; 84100; 84439; 84443; 84484; 85025; 85045; 85610; 85730; 87081; 87086; 93005; 96361; 96374; 96375; 96376; 99285; J1170; J2001; J2270; J2405; J3475; J3480; J7030; Q0092

== ENCOUNTER 2017-09-10 00:40 | Emergency (ER) | payer MEDICAID ==
[~2017-09-10] VITALS: Ht 170.2 cm; Wt 108.9 kg
--- NOTE | 2017-09-10 00:40 | NUR ---
PT TAKEN TO BED 11 VIA W/C
[2017-09-10 00:51] VITALS: BP 134/81
--- NOTE | 2017-09-10 00:53 | NUR ---
Dr. Blue evaluating patient.
[2017-09-10] MEDS ORDERED: ONDANSETRON 4 MG/2 ML VIAL IVP ONE (00:55)
[2017-09-10] MEDS ORDERED: NACL 0.9% 500 ML IV ONE (00:55)
[2017-09-10] MEDS ORDERED: KETOROLAC 30 MG/ML VIAL IVP ONE (00:55)
--- NOTE | 2017-09-10 01:00 | NUR ---
PT IS 27 YEARS OLD FEMALE, CAME IN WITH CHIEF COMPLAIN OF SHARP ABDOMINAL PAIN 10/10 X 1 DAY AND NAUSEA AND VOMITING, RADIATED TO LEFT SHOULDER. PT STATED, PT HAS HX OF PANCREATITIS. NO S/S OF RESPIRATORY DISTRESS NOTED. PT STATED, PT HAS NO ALLERGY FOR MEDICATIONS. MD AWARE AND CONTINUE TO MONITOR.
[2017-09-10 01:16] LABS: BASOPHILS # (AUTO) 0.3 K/uL (0.00-0.22); BASOPHILS % (AUTO) 2.9 % (0.0-2.0); EOSINOPHILS # (AUTO) 0.3 K/uL (0-0.4); HEMATOCRIT 36.6 % (36-48); HEMOGLOBIN 11.6 g/dL (12.0-16.0); LYMPHOCYTES # (AUTO) 1.1 K/uL (2.5-16.5); LYMPHOCYTES % (AUTO) 9.9 % (20.5-51.1); MEAN CORPUSCULAR HEMOGLOBIN 23 pg (27-31); MEAN CORPUSCULAR HGB CONC 32 g/dL (33-37); MEAN CORPUSCULAR VOLUME 74 fL (80-94); MONOCYTES # (AUTO) 0.2 K/uL (0.8-1.0); MONOCYTES % (AUTO) 1.4 % (1.7-9.3); NEUTROPHILS # (AUTO) 9.3 K/uL (1.8-7.7); NEUTROPHILS % (AUTO) 82.8 % (42.2-75.2); PLATELET COUNT (AUTO) 352 K/uL (140-450); RED BLOOD CELL COUNT(AUTO) 4.98 MIL/uL (4.20-5.40); RED CELL DISTRIBUTION WIDTH 15.3 % (11.6-13.7); WHITE BLOOD COUNT (AUTO) 11.2 K/uL (4.8-10.8)
--- NOTE | 2017-09-10 01:20 | NUR ---
Ultrasound at bedside.
[2017-09-10 01:32] LABS: ALBUMIN 3.6 g/dL (3.4-5.0); ANION GAP 16.2 (8-16); CARBON DIOXIDE 23.6 mmol/L (21-32); CREATININE 0.7 mg/dL (0.6-1.3); POTASSIUM 3.8 mmol/L (3.5-5.1); TOTAL BILIRUBIN 0.3 mg/dL (0.0-1.0)
[2017-09-10] MEDS ORDERED: PANTOPRAZOLE 40 MG INJ VIAL IVP ONE (01:40)
[2017-09-10] MEDS ORDERED: MORPHINE SULFATE 2 MG/ML SYR IVP ONE (02:10)
[2017-09-10 02:15] VITALS: BP 130/68
--- NOTE | 2017-09-10 02:15 | NUR ---
SODIUM CHLORIDE FINISHED AT 0150.
--- NOTE | 2017-09-10 02:15 | NUR ---
Patient discharged with v/s stable. Written and verbal after care instructions given and explained. Patient alert, oriented and verbalized understanding of instructions. Ambulatory with steady gait. All questions addressed prior to discharge. ID band removed. Patient advised to follow up with PMD. Rx of MAALOX 15ML, TRAMADOL 50MG, ZOFRAN 4MG, OMEPRAZOLE 40MG given. Patient educated on indication of medication including possible reaction and side effects. Opportunity to ask questions provided and answered.
== END 2017-09-10 02:15 | disposition home or self-care (01) ==
LOC: MED 00:40
DX: K29.70 Gastritis, unspecified, without bleeding (principal); Z90.49 Acquired absence of other specified parts of digestive tract
CPT/HCPCS: 36415; 76705; 80053; 83690; 85025; 96374; 96375; 99285; C9113; J1885; J2405; Q0092

== ENCOUNTER 2017-09-28 21:52 | Inpatient (IN) | payer MEDICAID ==
[~2017-09-28] VITALS: Ht 170.2 cm; Wt 108.4 kg
[2017-09-28 22:02] VITALS: BP 114/80
[2017-09-28] MEDS ORDERED: NACL 0.9% 500 ML IV ONE (22:23)
[2017-09-28] MEDS ORDERED: KETOROLAC 30 MG/ML VIAL IVP ONE (22:25)
[2017-09-28 22:53] LABS: BASOPHILS # (AUTO) 0.2 K/uL (0.00-0.22); BASOPHILS % (AUTO) 1.8 % (0.0-2.0); EOSINOPHILS # (AUTO) 0.2 K/uL (0-0.4); EOSINOPHILS % (AUTO) 1.5 % (0.0-4.0); HEMATOCRIT 38.1 % (36-48); LYMPHOCYTES # (AUTO) 1.7 K/uL (2.5-16.5); LYMPHOCYTES % (AUTO) 13.1 % (20.5-51.1); MEAN CORPUSCULAR HEMOGLOBIN 23 pg (27-31); MEAN CORPUSCULAR HGB CONC 32 g/dL (33-37); MEAN CORPUSCULAR VOLUME 72 fL (80-94); MONOCYTES # (AUTO) 0.4 K/uL (0.8-1.0); MONOCYTES % (AUTO) 3.2 % (1.7-9.3); NEUTROPHILS # (AUTO) 10.5 K/uL (1.8-7.7); NEUTROPHILS % (AUTO) 80.4 % (42.2-75.2); PLATELET COUNT (AUTO) 411 K/uL (140-450); RED CELL DISTRIBUTION WIDTH 14.8 % (11.6-13.7)
[2017-09-28 23:04] LABS: ALBUMIN 3.7 g/dL (3.4-5.0); ANION GAP 14.2 (8-16); CARBON DIOXIDE 25.7 mmol/L (21-32); CREATININE 0.9 mg/dL (0.6-1.3); POTASSIUM 3.9 mmol/L (3.5-5.1); TOTAL BILIRUBIN 0.4 mg/dL (0.0-1.0)
[2017-09-28] MEDS ORDERED: fentaNYL 0.05 MG/ML VIAL IVP ONE (23:45)
[2017-09-29] MEDS ORDERED: ACETAMINOPHEN 325 MG TAB PO PRN (00:10)
[2017-09-29] MEDS ORDERED: ONDANSETRON 4 MG/2 ML VIAL IVP PRN (00:10)
[2017-09-29] MEDS ORDERED: DOCUSATE SODIUM 100 MG GELCAP PO PRN (00:10)
[2017-09-29] MEDS: NACL 0.9% 1,000 ML IV SCH ×4 (00:58→20:34)
[2017-09-29 01:00] LABS: PROTHROMBIN TIME 11.2 secs (10.8-13.4)
[2017-09-29 01:07] LABS: MAGNESIUM 1.6 mg/dL (1.8-2.4); PHOSPHORUS 3.6 mg/dL (2.5-4.9)
[2017-09-29] MEDS: MORPHINE SULFATE 2 MG/ML SYR IVP PRN ×2 (01:25→04:48)
[2017-09-29 01:51] VITALS: BP 128/77
[2017-09-29] MEDS ORDERED: MAG SULF 2000 MG/WATER PREMIX 50 ML IV ONE (02:55)
[2017-09-29 04:00] VITALS: BP 141/93
[2017-09-29 06:42] LABS: BASOPHILS # (AUTO) 0.1 K/uL (0.00-0.22); BASOPHILS % (AUTO) 0.5 % (0.0-2.0); EOSINOPHILS # (AUTO) 0.1 K/uL (0-0.4); EOSINOPHILS % (AUTO) 0.7 % (0.0-4.0); HEMATOCRIT 34.5 % (36-48); HEMOGLOBIN 11.2 g/dL (12.0-16.0); LYMPHOCYTES # (AUTO) 0.8 K/uL (2.5-16.5); LYMPHOCYTES % (AUTO) 6.4 % (20.5-51.1); MEAN CORPUSCULAR HEMOGLOBIN 23 pg (27-31); MEAN CORPUSCULAR HGB CONC 32 g/dL (33-37); MEAN CORPUSCULAR VOLUME 72 fL (80-94); MONOCYTES # (AUTO) 0.5 K/uL (0.8-1.0); MONOCYTES % (AUTO) 4.2 % (1.7-9.3); NEUTROPHILS # (AUTO) 10.5 K/uL (1.8-7.7); NEUTROPHILS % (AUTO) 88.2 % (42.2-75.2); PLATELET COUNT (AUTO) 344 K/uL (140-450); RED CELL DISTRIBUTION WIDTH 15.1 % (11.6-13.7)
[2017-09-29 07:00] LABS: ANION GAP 15.5 (8-16); CARBON DIOXIDE 23.5 mmol/L (21-32); CREATININE 0.8 mg/dL (0.6-1.3)
[2017-09-29 07:08] LABS: MAGNESIUM 2.8 mg/dL (1.8-2.4)
[2017-09-29 08:00] VITALS: BP 124/81
[2017-09-29] MEDS: KETOROLAC 30 MG/ML VIAL IVP PRN ×2 (08:30→20:34)
[2017-09-29 12:00] VITALS: BP 113/75
[2017-09-29 15:01] LABS: BARBITURATE, URINE NEG. ng/ml (NEG <=200); BENZODIAZEPINE, URINE NEG. ng/mL (NEG <=200); CANNABINOID, URINE NEG. ng/mL (NEG <=50); COCAINE, URINE NEG. ng/mL (NEG <=300); OPIATE, URINE NEG. ng/mL (NEG <=2000); PHENCYCLIDINE SCREEN,URINE NEG. ng/mL (NEG <=25)
[2017-09-29 16:07] LABS: APPEARANCE,URINE CLEAR (CLEAR); BILIRUBIN,URINE NEGATIVE (NEGATIVE); BLOOD, URINE NEGATIVE (NEGATIVE); COLOR,URINE YELLOW (YELLOW); LEUKOCYTE ESTERASE ,URINE NEGATIVE (NEGATIVE); NITRITE, URINE NEGATIVE (NEGATIVE); PH,URINE 5.5 (5.0-9.0); UGLUCOSE NEGATIVE (NEGATIVE)
[2017-09-29] MEDS: metroNIDAZOLE 500 MG/NS PREMIX 100 ML IV SCH (20:33)
[2017-09-29] MEDS: cefTAZidime 2,000 MG in DEXTROSE 5% 100 ML IV SCH (20:33)
[2017-09-30] VITALS: BP 113/77
[2017-09-30] MEDS: NACL 0.9% 1,000 ML IV SCH ×3 (02:08→21:56)
[2017-09-30] MEDS: metroNIDAZOLE 500 MG/NS PREMIX 100 ML IV SCH ×3 (05:13→21:55)
[2017-09-30] MEDS: cefTAZidime 2,000 MG in DEXTROSE 5% 100 ML IV SCH ×3 (05:13→21:56)
[2017-09-30 06:32] LABS: BASOPHILS # (AUTO) 0.1 K/uL (0.00-0.22); BASOPHILS % (AUTO) 1.3 % (0.0-2.0); EOSINOPHILS # (AUTO) 0.2 K/uL (0-0.4); EOSINOPHILS % (AUTO) 2.2 % (0.0-4.0); HEMATOCRIT 30.3 % (36-48); HEMOGLOBIN 9.6 g/dL (12.0-16.0); LYMPHOCYTES % (AUTO) 11.8 % (20.5-51.1); MEAN CORPUSCULAR HEMOGLOBIN 23 pg (27-31); MEAN CORPUSCULAR HGB CONC 32 g/dL (33-37); MEAN CORPUSCULAR VOLUME 73 fL (80-94); MONOCYTES # (AUTO) 0.5 K/uL (0.8-1.0); MONOCYTES % (AUTO) 6.4 % (1.7-9.3); NEUTROPHILS # (AUTO) 6.8 K/uL (1.8-7.7); NEUTROPHILS % (AUTO) 78.3 % (42.2-75.2); PLATELET COUNT (AUTO) 278 K/uL (140-450); RED BLOOD CELL COUNT(AUTO) 4.17 MIL/uL (4.20-5.40); RED CELL DISTRIBUTION WIDTH 14.9 % (11.6-13.7); WHITE BLOOD COUNT (AUTO) 8.6 K/uL (4.8-10.8)
[2017-09-30 06:50] LABS: ANION GAP 11.1 (8-16); CARBON DIOXIDE 27.4 mmol/L (21-32); CREATININE 0.6 mg/dL (0.6-1.3); POTASSIUM 3.5 mmol/L (3.5-5.1)
[2017-09-30 06:56] LABS: MAGNESIUM 1.8 mg/dL (1.8-2.4); PHOSPHORUS 3.5 mg/dL (2.5-4.9)
[2017-09-30 07:52] LABS: AMYLASE 153 U/L (25-115); LIPASE 127 U/L (73-393)
[2017-09-30 08:00] VITALS: BP 116/81
[2017-09-30] MEDS: LACTOBACILLUS RHAMNOSUS GG 1 EACH CAP PO SCH (08:46)
[2017-09-30] MEDS ORDERED: METHOCARBAMOL 500 MG TAB PO SCH (08:50)
[2017-09-30] MEDS ORDERED: POTASSIUM CHLORIDE 10 MEQ TABER PO SCH (09:30)
[2017-09-30] MEDS ORDERED: MAGNESIUM OXIDE 400 MG TAB PO SCH (09:30)
[2017-09-30 09:39] LABS: LACTATE DEHYDROGENASE 180 IU/L (119-226)
[2017-09-30 12:00] VITALS: BP 127/79
[2017-09-30 20:00] VITALS: BP 109/53
[2017-09-30] MEDS: KETOROLAC 30 MG/ML VIAL IVP PRN (21:57)
[2017-10-01] VITALS: BP 103/74
[2017-10-01] MEDS: metroNIDAZOLE 500 MG/NS PREMIX 100 ML IV SCH ×3 (04:48→20:21)
[2017-10-01] MEDS: cefTAZidime 2,000 MG in DEXTROSE 5% 100 ML IV SCH ×3 (04:48→20:21)
[2017-10-01 06:33] LABS: HEMATOCRIT 29.5 % (36-48); HEMOGLOBIN 9.4 g/dL (12.0-16.0); MEAN CORPUSCULAR HEMOGLOBIN 23 pg (27-31); MEAN CORPUSCULAR HGB CONC 32 g/dL (33-37); MEAN CORPUSCULAR VOLUME 73 fL (80-94); PLATELET COUNT (AUTO) 222 K/uL (140-450); RED BLOOD CELL COUNT(AUTO) 4.03 MIL/uL (4.20-5.40); RED CELL DISTRIBUTION WIDTH 14.9 % (11.6-13.7); WHITE BLOOD COUNT (AUTO) 8.8 K/uL (4.8-10.8)
[2017-10-01 07:14] LABS: ANION GAP 12.2 (8-16); CARBON DIOXIDE 25.2 mmol/L (21-32); CREATININE 0.5 mg/dL (0.6-1.3); POTASSIUM 3.4 mmol/L (3.5-5.1)
[2017-10-01] MEDS ORDERED: METHOCARBAMOL 500 MG TAB PO PRN (07:25)
[2017-10-01 07:39] LABS: MAGNESIUM 1.8 mg/dL (1.8-2.4); PHOSPHORUS 4.1 mg/dL (2.5-4.9)
[2017-10-01 07:52] LABS: EOSINOPHILS % (MANUAL) 2 % (0-4); LYMPHOCYTES % (MANUAL) 12 % (20-46); MONOCYTES % (MANUAL) 4 % (5-12)
[2017-10-01 08:00] VITALS: BP 108/76
[2017-10-01] MEDS: LACTOBACILLUS RHAMNOSUS GG 1 EACH CAP PO SCH (08:27)
[2017-10-01] MEDS ORDERED: MAGNESIUM OXIDE 400 MG TAB PO SCH (11:30)
[2017-10-01] MEDS ORDERED: POTASSIUM CHLORIDE 10 MEQ TABER PO SCH (11:30)
[2017-10-01] MEDS: KETOROLAC 30 MG/ML VIAL IVP PRN ×2 (13:47→20:21)
[2017-10-01] MEDS: NACL 0.9% 1,000 ML IV SCH ×2 (14:14→20:55)
[2017-10-01 16:00] VITALS: BP 126/81
[2017-10-01 20:00] VITALS: BP 130/86
[2017-10-02] MEDS: metroNIDAZOLE 500 MG/NS PREMIX 100 ML IV SCH (04:49)
[2017-10-02] MEDS: cefTAZidime 2,000 MG in DEXTROSE 5% 100 ML IV SCH (04:49)
[2017-10-02 08:00] VITALS: BP 134/80
[2017-10-02] MEDS: LACTOBACILLUS RHAMNOSUS GG 1 EACH CAP PO SCH (08:14)
[2017-10-04 06:18] LABS: LD1 FRACTION 9 % (17-32); LD2 FRACTION 28 % (25-40); LD3 FRACTION 24 % (17-27); LD4 FRACTION 13 % (5-13)
[2017-10-11 01:45] LABS: LD5 FRACTION 26 % (4-20)
== END 2017-10-02 11:11 | disposition home or self-care (01) | DRG 282 ==
LOC: MED 21:52 → MTU 09-29 00:14
PROVIDERS: ADMIT Student in an Organized Health Care Education/Training Program; ATTEND Student in an Organized Health Care Education/Training Program
DX: K85.91 Acute pancreatitis with uninfected necrosis, unspecified (principal); R65.10 Systemic inflammatory response syndrome (SIRS) of non-infectious origin without acute organ dysfunction; E83.42 Hypomagnesemia; E66.9 Obesity, unspecified; D50.9 Iron deficiency anemia, unspecified; E87.6 Hypokalemia; M40.50 Lordosis, unspecified, site unspecified; E28.2 Polycystic ovarian syndrome; K86.1 Other chronic pancreatitis; Z68.37 Body mass index [BMI] 37.0-37.9, adult; Z90.49 Acquired absence of other specified parts of digestive tract; Z83.3 Family history of diabetes mellitus
CPT/HCPCS: 36415; 71045; 72050; 76705; 76830; 80048; 80053; 80305; 81003; 82140; 82150; 83605; 83625; 83690; 83735; 83880; 84100; 84484; 85025; 85610; 85730; 87040; 87081; 87086; 96361; 96374; 96375; 99285; J0713; J1885; J2270; J2405; J3010; J3475; J3490; J7030; J7060; J7120; Q0092

== ENCOUNTER 2022-06-15 13:18 | Emergency (ER) | payer MEDICAID ==
[~2022-06-15] VITALS: Ht 172.7 cm; Wt 106.1 kg
[2022-06-15 13:38] VITALS: BP 131/78
--- NOTE | 2022-06-15 14:30 | NUR ---
31/F WALKED IN C/O LOW BACK PAIN, HESITANCY,RIGHT PELVIC PAIN X2DAYS. AFEBRILE. DENIES FLANK PAIN OR DYSURIA. DENIES HEMATURIA. VITALS STABLE. REPORTS 9/10 PAIN. NKA PMH: DM, HTN
[2022-06-15] MEDS ORDERED: KETOROLAC 30 MG/ML VIAL IM ONE (15:05)
[2022-06-15] MEDS ORDERED: IBUP-2213 PO ×2 (15:22→15:50)
[2022-06-15] MEDS ORDERED: NITR100C7 PO ×2 (15:22→15:50)
[2022-06-15] MEDS ORDERED: PHEN-1877 PO ×2 (15:22→15:50)
[2022-06-15 15:29] LABS: APPEARANCE,URINE CLEAR (CLEAR); BILIRUBIN,URINE NEGATIVE (NEGATIVE); BLOOD, URINE NEGATIVE (NEGATIVE); COLOR,URINE YELLOW (YELLOW); LEUKOCYTE ESTERASE ,URINE NEGATIVE (NEGATIVE); NITRITE, URINE NEGATIVE (NEGATIVE); PH,URINE 5.5 (5.0-9.0); UGLUCOSE 3+ (NEGATIVE)
[2022-06-15 15:40] VITALS: BP 126/67
== END 2022-06-15 15:40 | disposition home or self-care (01) ==
LOC: MED 13:18
DX: N39.0 Urinary tract infection, site not specified (principal); I10 Essential (primary) hypertension; E11.9 Type 2 diabetes mellitus without complications; Z79.4 Long term (current) use of insulin; Z79.899 Other long term (current) drug therapy
CPT/HCPCS: 81003; 81025; 96372; 99283; J1885